=== PATIENT | female | born 1985 | race Caucasian/White ===

== ENCOUNTER 2018-02-10 14:16 | Emergency (ER) | payer OTHER ==
[2018-02-10 14:22] VITALS: BP 155/106
--- NOTE | 2018-02-10 14:53 | EDPHY ---
HPI/HX/ROS/PE/MDM Narrative: CHIEF COMPLAINT: Thigh pain HPI: The patient is a 32 y/o female arriving with her friend complaining of left thigh pain onset yesterday after flying here from [place] (~2hr flight). She describes "shooting" pain extending from her left hip down the front of her thigh to her knee that "felt like a trapped nerve," despite no history of sciatica or known herniated discs. Her pain is worse with sitting and walking and not as bad when standing or with palpation. She has some mild low back pain. She also feels her left leg looks slightly more swollen compared to her right leg and is concerned for a blood clot due to her recent travel. She notes she pulled a muscle "in my butt cheek" 2 weeks ago playing softball and has continued to work out at [employer] since this injury with recurrent pain. She has no personal or family history of blood clotting issues. No incontinence, weakness, paresthesias, fever. REVIEW OF SYSTEMS: Aside from elements discussed in the HPI, a comprehensive 10-point review of systems was reviewed and is negative. 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 Friend at bedside. PHYSICAL EXAM: General:Patient is alert, in no acute distress. ENT:Eyes are normal to inspection. ENT inspection normal. Neck: Normal inspection. Full range of motion. Respiratory:No respiratory distress. Breath sounds normal bilaterally. Cardiovascular: Regular rate and rhythm. Strong peripheral pulses. Normal cap refill. Abdomen:The abdomen is nontender to palpation. There are no peritoneal signs. Back: Normal to inspection. No tenderness to palpation. Skin: Normal color. No rash. Warm and dry. Extremities: Normal appearance. Full range of motion. Left thigh pain elicited with straight leg raise. Neuro: Oriented x3. Normal motor function. Normal sensory function. ED Course: This is a healthy 32 y/o female who presents with a 1-day history of left thigh pain extending from her hip to her knee. Pain is elicited with straight leg raise. Normal neurovascular exam and no appreciable swelling in her left leg. Presentation seems to most likely indicate a lumbar radiculopathy, but due to recent travel and patient's concern will perform left leg US to rule out DVT and lumbar x-ray to evaluate for obvious osseous abnormality. Lumbar x-ray and left leg US are negative. Reassessed patient and discussed findings. 30mg IM Toradol administered. She is declining further studies and will be discharged with standard lumbar radiculopathy care and follow up instructions. Scripts for Medrol and Flexeril provided. Return precautions discussed. She is comfortable with this plan. - Data Points Imaging Results: Imaging Impressions Extremity Venous Study 02/10/18 15:19 Impression: No deep venous thrombosis left leg. Findings and recommendations discussed with Emergency Department physician, Reynaldo Floyd MD at 16:19 hour, 02/10/2018. Final report concurs with initial preliminary interpretation. Lumbar Spine X-Ray 02/10/18 15:19 Impression: No source for symptoms identified. Imaging: Discussed imaging studies w/ crew caller Radiologist, I viewed and interpreted images myself General Time Seen by Provider: 02/10/18 14:46 Initial Vital Signs: Initial Vital Signs Temperature (C) 36.9 C 02/10/18 14:19 Heart Rate 87 02/10/18 14:19 Respiratory Rate 16 02/10/18 14:19 Blood Pressure 155/106 H 02/10/18 14:19 O2 Sat (%) 96 02/10/18 14:19 O2 Delivery Mode Room Air Allergies/Adverse Reactions: No Known Allergies Allergy (Unverified 02/10/18 14:19) Home Medications: Medication Instructions Recorded FLUoxetine 02/10/18 Departure - Departure Disposition: Home, Routine, Self-Care Clinical Impression: Lumbar radiculopathy, acute Condition: Good Instructions: Methylprednisolone (By mouth), Lumbar Radiculopathy (ED) Additional Instructions: 1. Take 800mg ibuprofen every 8 hours for pain and inflammation over the next few days. You received a similar medication while in the ED today (Toradol), so you should wait 8 hours before taking a dose of ibuprofen. 2. Use Flexeril as prescribed as needed for severe pain or muscle spasm. This mediation can make you drowsy. Do not use prior to driving. 3. Take Medrol dose pack as prescribed. Be sure to complete the entire prescription. 4. Follow up with back specialist in the next week for unimproved symptoms. 5. Return to the ED for incontinence, weakness, numbness, or other worsening of condition. Referrals: Rhonda Chauhan MD [Primary Care Provider] - As per Instructions Prince Dorsey MD [Medical Doctor] - As per Instructions Report Scribed for: Reynaldo Floyd Report Scribed by: Nell Rico Date of Report: 02/10/18 Time of Report: 14:53
[2018-02-10] MEDS ORDERED: KETOROLAC 30 MG/1 ML SDV IM ONE ×2 (16:35→16:36)
== END 2018-02-10 17:13 | disposition home or self-care (01) ==
DX: M54.16 Radiculopathy, lumbar region (principal)
CPT/HCPCS: J1885